=== PATIENT | female | born 1980 | race Caucasian/White ===

== ENCOUNTER 2019-01-26 23:04 | Emergency (ER) | payer MEDICAID ==
[~2019-01-26] VITALS: Ht 165.1 cm; Wt 109.0 kg
[~2019-01-26 23:04] MED LIST: AMLO2.5T45 PO; CLON0.1T PO; HYDR25TA PO; LISI-604 PO
[2019-01-27] MEDS ORDERED: CLONIDINE 0.2MG TABLET PO ONE (01:00)
[2019-01-27] MEDS ORDERED: CLINDAMYCIN 600 MG in DEXTROSE 5% WATER 50 ML IV ONE (02:00)
[2019-01-27] MEDS: CLINDAMYCIN 600 MG in SODIUM CHLORIDE 0.9% 50 ML IV NR ×2 (02:21→02:54)
[2019-01-27 04:11] VITALS: BP 170/98
== END 2019-01-27 04:28 | disposition home or self-care (01) ==
LOC: ER 23:04
DX: T63.301A Toxic effect of unspecified spider venom, accidental (unintentional), initial encounter (principal); L53.0 Toxic erythema; I10 Essential (primary) hypertension; Z88.8 Allergy status to other drugs, medicaments and biological substances; Z88.2 Allergy status to sulfonamides; Y92.018 Other place in single-family (private) house as the place of occurrence of the external cause
CPT/HCPCS: 96365; 99283; J3490; Z7610; J7060

== ENCOUNTER 2020-08-01 12:15 | Emergency (ER) | payer MEDICAID ==
[~2020-08-01] VITALS: Ht 165.1 cm; Wt 109.0 kg
[2020-08-01] MEDS ORDERED: DOXY100C42 MT (12:51)
[2020-08-01] MEDS ORDERED: LIDOCAINE HCL/EPINEPHRINE 1%-EPI 1:100,000 30 ML VIAL INFIL ONE (13:00)
[2020-08-01] MEDS ORDERED: LIDOCAINE HCL/EPINEPHRINE 1%-EPI 1:100,000 20 ML VIAL INFIL ONE (13:00)
[2020-08-01 14:18] VITALS: BP 134/87
== END 2020-08-01 14:30 | disposition home or self-care (01) ==
LOC: ER 12:15
DX: L02.416 Cutaneous abscess of left lower limb (principal); R00.0 Tachycardia, unspecified; I10 Essential (primary) hypertension
CPT/HCPCS: 10060; 93005; 99283; J3490